=== PATIENT | female | born 1995 | race Two or more races ===

== ENCOUNTER 2020-12-19 09:05 | Emergency (ER) | payer OTHER ==
[~2020-12-19] VITALS: Ht 157.5 cm; Wt 64.9 kg
== END 2020-12-19 14:33 | disposition home or self-care (01) ==
LOC: ER 09:05
DX: K52.9 Noninfective gastroenteritis and colitis, unspecified (principal)

== ENCOUNTER 2021-01-17 12:11 | Emergency (ER) | payer OTHER ==
[~2021-01-17] VITALS: Ht 157.5 cm; Wt 70.3 kg
== END 2021-01-17 17:54 | disposition home or self-care (01) ==
LOC: ER 12:11
DX: K29.60 Other gastritis without bleeding (principal)

== ENCOUNTER 2021-06-14 08:53 | Emergency (ER) | payer OTHER ==
[~2021-06-14] VITALS: Ht 157.5 cm; Wt 68.0 kg
== END 2021-06-14 16:19 | disposition home or self-care (01) ==
LOC: ER 08:53
DX: K29.70 Gastritis, unspecified, without bleeding (principal); Z20.822 Contact with and (suspected) exposure to COVID-19